=== PATIENT | male | born 1970 | race Caucasian/White ===

== ENCOUNTER 2025-08-16 13:56 | Emergency (ER) | payer BC, SELFPAY ==
[2025-08-16 14:04] VITALS: BP 141/87; PULSE 95; RESP 16; TEMP 36.9; O2SAT 97; BMI 25.7
[2025-08-16] MEDS: LIDOCAINE HCL 1% 20 ML VIAL INFL (14:29)
--- NOTE | 2025-08-16 14:49 | EDNOTE_ITS ---
<Statement entered by Shanita Sorensen MD - 09/04/25 06:07> As co-signing physician, I was present and available for consult prn. I concur with the plan and care as documented by the midlevel provider. ED Wound/Laceration-RME/HPI General Chief Complaint: Wound/Laceration Stated Complaint: LEFT ARM LACERATION Time Seen by Provider: 08/16/25 14:15 Arrival date/time: 08/16/25 13:56 54-year-old male presents to the emergency department today send he cut himself on a piece of sheet metal today patient obtained a laceration of left forearm approximately 6 cm. Patient does report tetanus up-to-date Limitations: no limitations Related Data Previous Rx's ?Medication ?Instructions ?Recorded cephalexin 500 mg capsule 500 mg PO BID 7 days #14 cap s 08/16/25 ibuprofen 600 mg tablet 600 mg PO Q6H #30 tabs 08/16 Allergies Allergy/AdvReac Type Severity Reaction Status Date / Time No Known Allergies Allergy Verified 08/16/25 13:58 Review of Systems Review of Systems Systems Reviewed: All systems reviewed, normal except as documented Constitutional Constitutional: Reports system reviewed and no additional complaints, except as documented, Denies fever(s) and Denies headache(s) Eyes Eyes: Reports system reviewed and no additional complaints, except as documented and Denies blurry vision ENT Ears, Nose, Mouth, and Throat: Reports system reviewed and no additional complaints, except as documented, Denies headache(s), Denies nasal congestion and Denies nasal discharge Cardiovascular Cardiovascular: Reports system reviewed and no additional complaints, except as documented, Denies chest pain and Denies dyspnea Respiratory Respiratory: Reports system reviewed and no additional complaints, except as documented, Denies chest congestion, Denies cough and Denies dyspnea Gastrointestinal Gastrointestinal: Reports system reviewed and no additional complaints, except as documented and Denies abdominal pain Integumentary/Breasts Skin/Breast: Reports system reviewed and no additional complaints, except as documented, Denies rash and Reports wounds (Laceration left forearm) Neurologic Neurologic: Reports system reviewed and no additional complaints, except as documented, Reports as per HPI and Denies headache(s) Past Medical History Social History SMOKING STATUS: Never smoker ED Exam General Limitations: Present no limitations General appearance: Present alert and in no apparent distress Head Head exam: Present atraumatic Eye Eye exam: Present normal appearance, PERRL and EOMI ENT ENT exam: Present normal exam, normal oropharynx and mucous membranes moist Neck Neck exam: Present normal inspection, full ROM and trachea midline Chest Chest inspection: Present normal inspection and symmetric chest wall rise Respiratory Respiratory exam: Present normal lung sounds bilaterally Cardiovascular Cardiovascular exam: Present regular rate, normal rhythm and normal heart sounds Abdominal Exam Abdominal exam: Present soft and normal bowel sounds Extremities Exam Extremities exam: Present full ROM, tenderness, normal capillary refill and other (Laceration left forearm); Absent joint swelling Back Exam Back exam: Present normal inspection and full ROM Neurological Exam Neurological exam: Present alert, oriented X3 and CN II-XII intact Psychiatric Psychiatric exam: Present normal affect and normal mood Skin Skin exam: Present warm, dry and other (Laceration left forearm) Course Quality Measures none Orders Category Date Time Status Set Up Suture Tray STAT Care 08/16/25 14:24 Active Wound Care NOW Care 08/16/25 14:24 Active Lidocaine 1% 20 ml [Xylocaine 1% 20 ML] Med 08/16/25 14:23 Discontinued 20 ml INFL X1 ONE Vital Signs Vital signs: Vital Signs Temperature 98.5 F 08/16/25 14:04 Pulse Rate 95 08/16/25 14:04 Respiratory Rate 16 08/16/25 14:04 Blood Pressure 141/87 H 08/16/25 14:04 Pulse Oximetry (%) 97 08/16/25 14:04 Oxygen Delivery Method Room Air 08/16/25 14:04 O2 saturation 97% room air within the limits PROCEDURES: Laceration Laceration 1: Site: upper extremity Side (If applicable): left Size (cm): 6 Description: linear Depth: involves muscle layer Local Anesthetic: lidocaine 1% Amount of anesthesia used (mL): 15 Pre-repair: wound explored and irrigated extensively Skin layer closed with: nylon Suture size (cm): 4-0 Technique: simple, interrupted Subcutaneous layer closed with: vicryl Size: 3-0 Number of sutures: 3 Technique: simple, interrupted Muscle layer closed with: vicryl Size: 4-0 Number of sutures: 4 Wound / Laceration MDM Narrative MDM Narrative:: 54-year-old male presents to the emergency department today send he cut himself on a piece of sheet metal today patient obtained a laceration of left forearm approximately 6 cm. Patient does report tetanus up-to-date On exam patient has laceration left forearm patient has full range of motion of all digits, he can fist and move all fingers out difficulty patient reports no pain in the hand or wrist Patient does have a complex laceration of the left forearm wound was repaired by my colleague 4 sutures placed in the muscle 3 and the fascia and 11 skin layer Wound gated copiously laceration repaired no bleeding time of discharge wounds well-approximated Patient discharged with course of antibiotics and pain medication Patient discharged home no distress well primary care doctor this 24 to 48 hours worsening symptoms return immediately Patient data External records reviewed:: [facility] previous records Clinical information provided by:: patient Social determinants that could affect healthcare access:: none Patient has the following chronic illnesses:: None How is presenting disease/condition affected by chronic disease/condition?: no chronic disease Evaluation data The following diagnostics were reviewed and interpreted by me:: other (specify) (N/A) Lab and/or radiology exams considered but not ordered:: Considered not ordered Interpretation Summary: N/A Medications / Prescriptions Medications or Prescriptions considered but not ordered:: Given Medication administrations:: Medication Administration History Discontinued Medications Lidocaine HCl (Lidocaine Hcl 1% 20 Ml Vial) 20 ml INFL X1 ONE Stop: 08/16/25 14:24 Last Admin: 08/16/25 14:29 Dose: 20 ml Documented By: ANA Comments: USED BY PROVIDER Given Consultations Consultation(s) initiated? (list below): No Diagnosis Wound Differential Diagnosis: laceration, abrasion and avulsion of skin Most likely diagnosis given after review of the tests above:: Laceration Admission Indicated Admission indicated?: not indicated Admission Request Was there a request for admission?: No Disposition Plan Disposition Plan: Discharge Discharge Attestation Discharge Attestation: The patient and all family members were given an opportunity to ask questions and understood the discharge instructions. Discharge instructions specifically effects, indications for sooner follow up or return to the emergency department, and the expected course of current diagnosis. Patient condition: Stable Discharge Plan Plan Patient Disposition: HOME (Self Care) Discharge Disposition comment: Stable Prescriptions/Referrals Prescriptions/Med Rec: New cephalexin 500 mg capsule 500 mg PO BID 7 Days Qty: 14 0RF ibuprofen 600 mg tablet 600 mg PO Q6H Qty: 30 0RF Problem List Clinical Impression: Laceration of forearm, left Patient/Caregiver Discharge Instructions Additional Instructions: Please follow up with your primary care doctor in the next 24-48hrs for any worsening symptoms return here immediately Please have sutures removed in 10 to 14 days Print Language: Setswana Stand Alone Forms: Charlee Award Info., Patient Portal Info Letter PA/[employer] Supervising Physician PA/[employer] Supervising Physician: Dr. Sorensen
== END 2025-08-16 15:01 | disposition home or self-care (01) ==
LOC: SERX 15:05
PROVIDERS: Emergency Provider Nurse Practitioner Primary Care; PCP Hospitalist
DX: S51.812A Laceration without foreign body of left forearm, initial encounter (principal); W26.8XXA Contact with other sharp object(s), not elsewhere classified, initial encounter
CPT/HCPCS: 12002; 99284; J3490